=== PATIENT | female | born 1980 | race Caucasian/White ===

== ENCOUNTER 2021-03-03 00:57 | Emergency (ER) | payer OTHER ==
[~2021-03-03 00:57] MED LIST: ZOFRAN8 MG PO
[2021-03-03 01:25] LABS: BASOPHIL 0.2 % (0-2); EOSINOPHIL 3.4 % (0-5); HCT 45.1 % (37.0-47.0); HGB 14.7 g/dl (12.5-16.0); MCH 30.4 pg (25.0-31.0); MCHC 32.6 g/dL (32.0-36.0); MCV 93.2 fL (78.0-100.0); MONOCYTE 7.2 % (0-12); MPV 10.7 fL (6.0-9.5); NEUTROPHIL 52.1 % (41-80); NRBC 0; PLT 251 K/uL (150-400); RBC 4.84 M/uL (4.20-5.40); RDW 13.2 % (11.5-14.0); WBC 8.3 K/uL (4.0-10.5)
[2021-03-03 01:42] LABS: BUN/CREAT RATIO (CALC) 22.5 RATIO; CREATININE 0.8 mg/dL (0.51-0.95); POTASSIUM 3.9 mmol/L (3.5-5.1)
[2021-03-03 01:45] LABS: BILIRUBIN NEGATIVE (NEGATIVE); BLOOD 3+ Ery/uL (NEGATIVE); CLARITY CLEAR (CLEAR); COLOR YELLOW (YELLOW); GLUCOSE (U) NORMAL (NORMAL); LEUKOCYTES 3+ Leu/uL (NEGATIVE); NITRITE NEGATIVE (NEGATIVE); PROTEIN NEGATIVE (NEGATIVE); UROBILINOGEN 0.2 mg/dL (0.2-1.0); pH 6.5 (5.0-9.0)
[2021-03-03 01:51] LABS: BACTERIA TRACE; SQUAMOUS EPITHELIAL CELLS RARE; URINARY WBC 20-50
[2021-03-03 01:52] LABS: AMORPHOUS URATES CRYSTALS TRACE
[2021-03-03] MEDS ORDERED: CIPRO500 MG PO (03:44)
[2021-03-03] MEDS ORDERED: NORCO 5-325 TA1 EACH PO (03:44)
== END 2021-03-03 03:59 | disposition home or self-care (01) ==
LOC: FER 00:57
PROVIDERS: Emergency Medicine Emergency Medical Services
DX: N30.01 Acute cystitis with hematuria (principal); F17.210 Nicotine dependence, cigarettes, uncomplicated
CPT/HCPCS: 36415; 80048; 81001; 85025; 87088; J0696; J1170; J1885; J2405; J7030

== ENCOUNTER 2021-06-12 01:37 | Emergency (ER) | payer OTHER ==
[~2021-06-12 01:37] MED LIST changes: +CIPRO500 MG PO; +NORCO 5-325 TA1 EACH PO
[2021-06-12 02:51] LABS: BASOPHIL 0.3 % (0-2); EOSINOPHIL 4.4 % (0-5); HCT 41.5 % (37.0-47.0); LYMPHOCYTE 31.1 % (15-48); MCH 31.2 pg (25.0-31.0); MCHC 33.7 g/dL (32.0-36.0); MCV 92.4 fL (78.0-100.0); MONOCYTE 7.6 % (0-12); MPV 11.7 fL (6.0-9.5); NEUTROPHIL 56.4 % (41-80); NRBC 0; PLT 171 K/uL (150-400); RBC 4.49 M/uL (4.20-5.40); RDW 13.1 % (11.5-14.0); WBC 8.7 K/uL (4.0-10.5)
[2021-06-12 02:54] LABS: CREATININE 0.75 mg/dL (0.51-0.95); POTASSIUM 3.9 mmol/L (3.5-5.1)
[2021-06-12 02:58] LABS: BILIRUBIN NEGATIVE (NEGATIVE); BLOOD 3+ Ery/uL (NEGATIVE); CLARITY CLEAR (CLEAR); COLOR YELLOW (YELLOW); GLUCOSE (U) NORMAL (NORMAL); LEUKOCYTES NEGATIVE Leu/uL (NEGATIVE); NITRITE NEGATIVE (NEGATIVE); PROTEIN NEGATIVE (NEGATIVE); UROBILINOGEN 0.2 mg/dL (0.2-1.0)
[2021-06-12 03:06] LABS: BACTERIA TRACE; URINARY WBC RARE
[2021-06-12] MEDS ORDERED: NORCO 5-325 TA1 EACH PO (05:28)
[2021-06-12] MEDS ORDERED: ONDANSETRON ODT4 MG PO (05:28)
[2021-06-12] MEDS ORDERED: CARAFATE1 GM PO ×2 (05:28→05:31)
[2021-06-12] MEDS ORDERED: PROTONIX 40MG T40 MG PO (05:28)
== END 2021-06-12 18:23 | disposition home or self-care (01) ==
LOC: FER 01:37
PROVIDERS: Internal Medicine
DX: N20.0 Calculus of kidney (principal); K29.80 Duodenitis without bleeding; F17.210 Nicotine dependence, cigarettes, uncomplicated; Z87.442 Personal history of urinary calculi
CPT/HCPCS: 36415; 80048; 81001; 85025; C9113; J1170; J2405; J7030

== ENCOUNTER 2022-01-01 23:36 | Emergency (ER) | payer OTHER ==
[~2022-01-01 23:36] MED LIST changes: +CARAFATE1 GM PO; +ONDANSETRON ODT4 MG PO; +PROTONIX 40MG T40 MG PO
[2022-01-02 00:45] LABS: BILIRUBIN NEGATIVE (NEGATIVE); BLOOD NEGATIVE Ery/uL (NEGATIVE); CLARITY CLEAR (CLEAR); COLOR YELLOW (YELLOW); GLUCOSE (U) NORMAL (NORMAL); LEUKOCYTES NEGATIVE Leu/uL (NEGATIVE); NITRITE NEGATIVE (NEGATIVE); PROTEIN NEGATIVE (NEGATIVE); UROBILINOGEN 0.2 mg/dL (0.2-1.0); pH 7.5 (5.0-9.0)
[2022-01-02 01:48] LABS: BASOPHIL 0.3 % (0-2); EOSINOPHIL 2.9 % (0-5); HCT 41.9 % (37.0-47.0); HGB 13.9 g/dl (12.5-16.0); LYMPHOCYTE 27.7 % (15-48); MCH 31.2 pg (25.0-31.0); MCHC 33.2 g/dL (32.0-36.0); MCV 94.2 fL (78.0-100.0); MONOCYTE 8.4 % (0-12); MPV 10.6 fL (6.0-9.5); NEUTROPHIL 60.4 % (41-80); NRBC 0; PLT 250 K/uL (150-400); RBC 4.45 M/uL (4.20-5.40); RDW 13.4 % (11.5-14.0); WBC 9.2 K/uL (4.0-10.5)
[2022-01-02 02:50] LABS: ALBUMIN 3.5 g/dL (3.4-5.0); BILIRUBIN - TOTAL 0.2 mg/dL (0.2-1.0); BUN/CREAT RATIO (CALC) 18.4 RATIO; CREATININE 0.76 mg/dL (0.51-0.95); GLOBULIN (CALCULATION) 3.5 g/dL; POTASSIUM 4.1 mmol/L (3.5-5.1)
[2022-01-02] MEDS ORDERED: NORCO 5-325 TA1 EACH PO (05:40)
[2022-01-02] MEDS ORDERED: ONDANSETRON ODT4 MG PO (05:40)
[2022-01-02] MEDS ORDERED: NAPROXEN500 MG PO (05:40)
== END 2022-01-02 05:55 | disposition home or self-care (01) ==
LOC: FER 23:36
PROVIDERS: Internal Medicine
DX: R10.31 Right lower quadrant pain (principal); R11.0 Nausea; F17.210 Nicotine dependence, cigarettes, uncomplicated
CPT/HCPCS: 36415; 80053; 81003; 83690; 85025; J1170; J2405; J2550